=== PATIENT | female | born 1985 | race American Indian/Alaskan Native ===

== ENCOUNTER 2020-04-24 13:05 | Emergency (ER) | payer OTHER ==
--- NOTE | 2020-04-24 14:58 | Vascular Lab Report ---
Left lower extremity Doppler venous ultrasound INDICATION: Pain FINDINGS: The left common femoral vein, superficial femoral vein and popliteal vein have normal compr essibility and phasic flow. IMPRESSION: No evidence for DVT in the left lower extremity. Signer Name: Pa Lizama MD Signed: 04/24/2020 2:53 PM Workstation Name: [id number]
--- NOTE | 2020-04-24 15:51 | Emergency Department Report ---
ED Lower Extremity HPI - General Chief Complaint: Extremity Injury, Lower Stated Complaint: LT KNEE/ANKLE PAIN(MRI) Time Seen by Provider: 04/24/20 13:36 Source: patient Mode of arrival: Ambulatory Limitations: No Limitations - History of Present Illness Initial Comments: This is a 34-year-old female nontoxic, well nourished in appearance, no acute signs of distress presents to the ED with c/o of left leg pain 1 week. Patient stated that she had a ground-level trip and fall last week. Patient was seen by her primary care doctor and has a pending MRI of her left knee. Patient has her x-ray report currently with her of her left knee which is unremarkable with no fractures or dislocation. Patient denies any injuries or trauma. Patient denies any numbness, tingling, fever, chills, nausea, vomiting, chest pain, shortness of breath, headache, stiff neck. Patient denies any joint swelling or joint redness. Patient denies decreased range of motion. Patient stated has decreased gait due to pain. Patient denies any allergies. Past medical history includes DVT. MD Complaint: knee injury, leg injury -: week(s) Injury: Knee: Left Place: street/outdoors Severity: mild Severity scale (0 -10): 8 Improves With: immobilization Worsens With: weight bearing, movement, palpation Context: fall Associated Symptoms: swelling, able to partially bear weight. denies: snap/pop sensation, numbness, tingling, unable to bear weight - Related Data Previous Rx's Medication Instructions Recorded Last Taken Type Prednisone [predniSONE 10 mg 10 mg PO .TAPER #1 tab.ds.pk 09/25/19 Unknown Rx (6-Day Pack, 21 Tabs)] Allergies Allergy/AdvReac Type Severity Reaction Status Date / Time No Known Allergies Allergy Unverified 09/25/19 11:31 ED Review of Systems ROS: Stated complaint: LT KNEE/ANKLE PAIN(MRI) Other details as noted in HPI Comment: All other systems reviewed and negative Constitutional: denies: chills, fever Eyes: denies: eye pain, eye discharge, vision change ENT: denies: ear pain, throat pain Respiratory: denies: cough, shortness of breath, wheezing Cardiovascular: denies: chest pain, palpitations Endocrine: no symptoms reported Gastrointestinal: denies: abdominal pain, nausea, diarrhea Genitourinary: denies: urgency, dysuria, discharge Musculoskeletal: denies: back pain, joint swelling, arthralgia Skin: denies: rash, lesions Neurological: denies: headache, weakness, paresthesias Psychiatric: denies: anxiety, depression Hematological/Lymphatic: denies: easy bleeding, easy bruising ED Past Medical Hx - Past Medical History Previous Medical History?: Yes Hx Hypertension: Yes Additional medical history: BLOOD DISORDER, FACTOR C / CARPEL TUNNEL,PE,DVT - Surgical History Past Surgical History?: No - Social History Smoking Status: Never Smoker Substance Use Type: None - Medications Home Medications: Home Medications Medication Instructions Recorded Confirmed Last Taken Type Prednisone [predniSONE 10 mg 10 mg PO .TAPER #1 tab.ds.pk 09/25/19 Unknown Rx (6-Day Pack, 21 Tabs)] ED Physical Exam - General Limitations: No Limitations General appearance: alert, in no apparent distress - Head Head exam: Present: atraumatic, normocephalic - Eye Eye exam: Present: normal appearance - Neck Neck exam: Present: normal inspection, full ROM. Absent: tenderness, meningismus, lymphadenopathy - Respiratory Respiratory exam: Absent: respiratory distress - Cardiovascular Cardiovascular Exam: Present: regular rate - Extremities Exam Extremities exam: Present: full ROM, tenderness, normal capillary refill, calf tenderness. Absent: joint swelling - Expanded Lower Extremity Exam Left Hip exam: Present: normal inspection, full ROM. Absent: tenderness, swelling Upper Leg exam: Present: normal inspection, full ROM. Absent: tenderness, swelling Knee exam: Present: full ROM, tenderness, swelling, full knee extension. Absent: abrasion, laceration, ecchymosis, deformity, crepidus, dislocation, erythema, effusion, pain w/ pronation/supination, posterior draw sign, pain/laxity with valgus, pain/laxity with varus Lower Leg exam: Present: full ROM, tenderness. Absent: swelling, abrasion, laceration, ecchymosis, deformity, crepidus, dislocation, erythema, palpable cord, Brandon's sign Ankle exam: Present: normal inspection, full ROM. Absent: tenderness, swelling, abrasion, laceration, ecchymosis, deformity, crepidus, dislocation, erythema, anterior draw sign Foot/Toe exam: Present: normal inspection, full ROM. Absent: tenderness, swelling Neuro vascular tendon exam: Present: no vascular compromise Gait: Positive: observed and limited by pain 1 - pain here - Back Exam Back exam: Present: normal inspection, full ROM. Absent: tenderness, CVA tenderness (R), CVA tenderness (L), muscle spasm, paraspinal tenderness, vertebral tenderness, rash noted - Neurological Exam Neurological exam: Present: alert, oriented X3 - Psychiatric Psychiatric exam: Present: normal affect, normal mood - Skin Skin exam: Present: warm, dry, intact, normal color. Absent: rash - Other Other exam information: Negative Owen test of left leg. ED Course Vital Signs 04/24/20 16:02 Temperature 98.3 F Pulse Rate 86 Respiratory 18 Rate Blood Pressure 132/82 [Left] O2 Sat by Pulse 99 Oximetry - Reevaluation(s) Reevaluation #1: 04/24/20 15:51 Patient is speaking in full sentences with no signs of distress noted. ED Lower Extremity MDM - Radiology Data [facility] [address] [place] [address] Vascular Lab Report Signed Patient: LUCINDA ROSENBERG MR#: [id number] : 1985 Acct:[id number] Age/Sex: 34 / F ADM Date: 04/24/20 Loc: ED Attending Dr: Ordering Physician: ALE SIMON NP Date of Service: 04/24/20 Procedure(s): VL venous duplex LE Accession Number(s): [id number] cc: ALE SIMON NP Left lower extremity Doppler venous ultrasound INDICATION: Pain FINDINGS: The left common femoral vein, superficial femoral vein and popliteal vein have normal compressibility and phasic flow. IMPRESSION: No evidence for DVT in the left lo wer extremity. Signer Name: Pa Lizama MD Signed: 04/24/2020 2:53 PM Workstation Name: [id number] Transcribed By: CW Dictated By: KYREE LIZAMA MD Electronically Authenticated By: KYREE LIZAMA MD Signed Date/Time: 04/24/20 145 DD/ 1452 TD/TT: - Medical Decision Making This is a 34-year-old female that presents with left leg strain. Patient is stable and was examined by me. I referred patient to an orthopedic doctor for further evaluation for possible MRI. Doppler ultrasound has been obtained and dictated by the radiologist. Patient is notified of the report with noted by the patient. Patient was instructed to RICE therapy. Patient follows up with primary care doctor for this condition. At time of discharge, the patient does not seem toxic or ill in appearance. No acute signs of distress noted. Patient agrees to discharge treatment plan of care. No further questions noted by the patient. Critical care attestation.: If time is entered above; I have spent that time in minutes in the direct care of this critically ill patient, excluding procedure time. ED Disposition Clinical Impression: Strain of left knee and leg Qualifiers: Encounter type: initial encounter Qualified Code(s): S86.912A - Strain of unspecified muscle(s) and tendon(s) at lower leg level, left leg, initial encounter Disposition: TO HOME OR SELFCARE Is pt being admited?: No Does the pt Need Aspirin: No Condition: Stable Instructions: RICE Therapy for Routine Care of Injuries, [id number] Additional Instructions: Follow-up with a orthopedic doctor in 3-5 days or if symptoms worsen and continue return to emergency room as soon as possible. No significant weight bearing or strenuous physical activity to that extremity until cleared by orthopedic doctor. Referrals: JASEN MAHAJAN MD [Primary Care Provider] - 3-5 Days PRIMARY CARE, [Referring] - 3-5 Days NAEEM PABLO MD [Staff Physician] - 3-5 Days Forms: Work/School Release Form(ED) Time of Disposition: 15:57
[2020-04-24 16:03] VITALS: BP 132/82
== END 2020-04-24 16:18 | disposition home or self-care (01) ==
LOC: ED 13:05
DX: S86.912A Strain of unspecified muscle(s) and tendon(s) at lower leg level, left leg, initial encounter (principal); I10 Essential (primary) hypertension; Z79.899 Other long term (current) drug therapy; W01.0XXA Fall on same level from slipping, tripping and stumbling without subsequent striking against object, initial encounter; Y93.89 Activity, other specified; Y92.89 Other specified places as the place of occurrence of the external cause; Y99.8 Other external cause status

== ENCOUNTER 2021-07-22 22:38 | Emergency (ER) | payer OTHER ==
--- NOTE | 2021-07-22 23:54 | Emergency Department Report ---
HPI - General Chief Complaint: Headache Time Seen by Provider: 07/22/21 23:36 - HPI HPI: Room 24 The patient is a 35-year-old female present with chief complaint of headache after fall. The patient presents with her spouse who states the patient had 1 beer this evening and when she went to the bathroom she passed out striking her head. Patient admits to loss of consciousness but denies preceding shortness of breath, chest pain or palpitations. Patient states her legs felt weak prior to losing consciousness. Patient now complains of feeling sleepy, having a headache and low back pain. Patient states her headache is the worst pain and gives it a score of 10/10. Patient denies nausea vomiting. Patient has a history of factor V Leiden and is currently on Xarelto ED Past Medical Hx - Past Medical History Previous Medical History?: Yes Hx Hypertension: Yes Additional medical history: BLOOD DISORDER, FACTOR C Leiden/ CARPEL TUNNEL,PE,DVT - Surgical History Past Surgical History?: Yes Hx Cholecystectomy: Yes Additional Surgical History: X 2 , Right knee - Social History Smoking Status: Current Every Day Smoker (7 cigarettes daily) Substance Use Type: Alcohol (Frequently), Marijuana - Medications Home Medications: Home Medications Medication Instructions Recorded Confirmed Last Taken Type Prednisone [predniSONE 10 mg 10 mg PO .TAPER #1 tab.ds.pk 09/25/19 Unknown Rx (6-Day Pack, 21 Tabs)] ED Review of Systems ROS: Stated complaint: FAINTED/HIT HEAD Other details as noted in HPI Constitutional: no symptoms reported Eyes: denies: eye pain ENT: denies: throat pain Respiratory: denies: shortness of breath Cardiovascular: denies: chest pain, palpitations Endocrine: no symptoms reported Gastrointestinal: denies: nausea, vomiting Genitourinary: denies: dysuria Musculoskeletal: back pain Neurological: headache Physical Exam - Physical Exam Vital Signs: Vital Signs 07/22/21 07/22/21 23:06 23:47 Temperature 98.2 F Pulse Rate 74 Respiratory 20 Rate Blood Pressure 130/70 O2 Sat by Pulse 98 96 Oximetry Physical Exam: GENERAL: The patient is well-developed well-nourished female lying on stretcher not appearing to be in acute distress. [] HEENT: Normocephalic. Atraumatic. Extraocular motions are intact. Patient has moist mucous membranes. NECK: Supple. Axial tenderness palpation. No axial step-off CHEST/LUNGS: Clear to auscultation. There is no respiratory distress noted. HEART/CARDIOVASCULAR: Regular. There is no tachycardia. There is no gallop rub or murmur. ABDOMEN: Abdomen is soft, nontender. Patient has normal bowel sounds. There is no abdominal distention. SKIN: There is no rash. There is no edema. There is no diaphoresis. NEURO: The patient is awake, alert, and oriented. The patient is cooperative. The patient has no focal neurologic deficits. The patient has normal speech. GCS 15 MUSCULOSKELETAL: There is tenderness palpation of the lumbar spine. There is no evidence of acute injury. ED Course Vital Signs 07/22/21 07/22/21 23:06 23:47 Temperature 98.2 F Pulse Rate 74 Respiratory 20 Rate Blood Pressure 130/70 O2 Sat by Pulse 98 96 Oximetry - Reevaluation(s) Reevaluation #1: 07/23/21 03:58 Patient and spouse states that they are unhappy with their interactions with staff and do not wish to have for further evaluation. They wish to leave AMA. We will give patient copy of labs and studies ED Medical Decision Making - Lab Data Result diagrams: 07/22/21 23:57 07/22/21 23:57 Laboratory Tests 07/22/21 07/22/21 07/22/21 23:57 23:57 23:57 WBC 7.3 RBC 4.06 Hgb 10.9 Hct 32.6 MCV 80 MCH 27 L MCHC 33 RDW 16.0 H Plt Count 429 Lymph % (Auto) 37.3 H Mclennan % (Auto) 7.9 H Eos % (Auto) 0.9 Baso % (Auto) 1.2 Lymph # (Auto) 2.7 Mclennan # (Auto) 0.6 Eos # (Auto) 0.1 Baso # (Auto) 0.1 Seg Neutrophils % 52.7 Seg Neutrophils # 3.9 PT INR D-Dimer Sodium 137 Potassium 3.7 Chloride 99.4 Carbon Dioxide 25 Anion Gap 16 BUN 7 Creatinine 1.0 Estimated GFR > 60 BUN/Creatinine Ratio 7 Glucose 95 Calcium 9.4 Total Bilirubin < 0.20 AST 14 ALT 11 Alkaline Phosphatase 99 Total Creatine Kinase 140 H CK-MB (CK-2) < 1.0 CK-MB (CK-2) Rel Index 0.7 Troponin T < 0.010 Total Protein 7.8 Albumin 4.2 Albumin/Globulin Ratio 1.2 HCG, Qual Plasma/Serum Alcohol 0.01 07/22/21 07/22/21 07/23/21 23:57 23:57 02:40 WBC RBC Hgb Hct MCV MCH MCHC RDW Plt Count Lymph % (Auto) Mclennan % (Auto) Eos % (Auto) Baso % (Auto) Lymph # (Auto) Mclennan # (Auto) Eos # (Auto) Baso # (Auto) Seg Neutrophils % Seg Neutrophils # PT 21.5 H INR 1.64 H D-Dimer 135.00 Sodium Potassium Chloride Carbon Dioxide Anion Gap BUN Creatinine Estimated GFR BUN/Creatinine Ratio Glucose Calcium Total Bilirubin AST ALT Alkaline Phosphatase Total Creatine Kinase CK-MB (CK-2) CK-MB (CK-2) Rel Index Troponin T Total Protein Albumin Albumin/Globulin Ratio HCG, Qual Negative Plasma/Serum Alcohol - Radiology Data Radiology results: report reviewed (CT head, CT cervical spine), image reviewed (CT head, CT cervical spine) interpreted by me: Lumbar spine x-ray-no acute fracture Bilateral shoulder x-ray-no acute fracture, no dislocation [facility] [address] [place] [address] Cat Scan Report Signed Patient: LUCINDA ROSENBERG MR#: [id number] : 1985 Acct:[id number] Age/Sex: 35 / F ADM Date: 07/22/21 Loc: ED Attending Dr: Ordering Physician: LAMONT COX MD Date of Service: 07/22/21 Procedure(s): CT head/brain wo con Accession Number(s): [id number] cc: LAMONT COX MD CT HEAD WITHOUT CONTRAST INDICATION / CLINICAL INFORMATION: Head injury after syncopal episode. TECHNIQUE: CT head was performed without administration of intravenous contrast. All CT scans at this location are performed using CT dose reduction for ALARA by means of automated exposure control. COMPARISON: None available. FINDINGS: CEREBRAL HEMISPHERES: There is no evidence of large territorial infarction or significant abnormality of alatorre-white matter differentiation. Ventricles within normal limits. No midline shift. Basal cisterns patent. HEMORRHAGE: None. CEREBELLUM / BRAINSTEM: No significant a bnormality. ORBITS: No significant abnormality. SOFT TISSUES: No significant abnormality. SKULL: No significant abnormality. PARANASAL SINUSES / MASTOID AIR CELLS: Normal as visualized. ADDITIONAL FINDINGS: None. IMPRESSION: 1. No acute intracranial abnormality. Signer Name: Abdifatah Solo II, MD Signed: 07/23/2021 1:44 AM Workstation Name: [id number] Transcribed By: RACHELL Dictated By: ABDIFATAH SOLO II, MD Electronically Authenticated By: ABDIFATAH SOLO II, MD Signed Date/Time: 07/23/21143 DD/ 2 TD/TT: [facility] [address] [place] [id number] Cat Scan Report Signed Patient: LUCINDA ROSENBERG MR#: [id number] : 1985 Acct:[id number] Age/Sex: 35 / F ADM Date: 07/22/21 Loc: ED Attendin g Dr: Ordering Physician: LAMONT COX MD Date of Service: 07/22/21 Procedure(s): CT cervical spine wo con Accession Number(s): [id number] cc: LAMONT COX MD CT CERVICAL SPINE WITHOUT CONTRAST INDICATION / CLINICAL INFORMATION: Head injury after syncopal episode. TECHNIQUE: Axial CT images were obtained through the cervical spine. Sagittal and coronal reformatted images were produced. All CT scans at this location are performed using CT dose reduction for ALARA by means of automated exposure control. COMPARISON: None available. FINDINGS: MANDIBLE: No significant abnormality of the visualized mandible or TMJs. SKULL BASE: No significant abnormality of the skull base. CRANIOCERVICAL JUNCTION: No significant abnormality of the craniocervical junction. CERVICAL SPINE: Cervical spine demonstrates normal alignment without evidence of acute fracture. No severe central stenosis. SOFT TISSUES: No significant abnormality of soft tissues or musculature. THYROID: No significant abnormality. UPPER CH EST: No significant abnormality of the visualized chest. ADDITIONAL FINDINGS: None. IMPRESSION: 1. No evidence of acute osseous injury. Signer Name: Abdifatah Solo II, MD Signed: 07/23/2021 1:45 AM Workstation Name: [id number] Transcribed By: RACHELL Dictated By: ABDIFATAH SOLO II, MD Electronically Authenticated By: ABDIFATAH SOLO II, MD Signed Date/Time: 07/23/21144 DD/ 3 TD/TT: [address] [address] XRay Report Signed Patient: LUCINDA ROSENBERG MR#: [id number] : 1985 Acct:[id number] Age/Sex: 35 / F ADM Date: 07/22/21 Loc: ED Attending Dr: Ordering Physician: LAMONT COX MD Date of Service: 07/22/21 Procedure(s): XR spine lumbosacral 2-3V Accession Number(s): [id number] cc: LAMONT COX MD Fluoro Time In Minutes: LUMBAR SPINE 2 VIEWS INDICATION / CLINICAL INFORMATION: Pain after fall. COMPARISON: None available. FINDINGS: VERTEBRAE: No acute fracture. No significant malalignment. DISC SPACES / FACET JOINTS:No significant abnormality. PARASPINAL SOFT TISSUES:No significant abnormality. ADDITIONAL FINDINGS: None. IMPRESSION: 1. No significant degenerative changes, no acute findings. Signer Name: Abdifatah Solo II, MD Signed: 07/23/2021 2:33 AM Workstation Name: [id number] Transcribed By: RACHELL Dictated By: ABDIFATAH SOLO II, MD Electronically Authenticated By: ABDIFATAH SOLO II, MD Signed Date/Time: 07/23/21232 DD/ 2 TD/TT: [address] [address] XRay Report Signed Patient: LUCINDA ROSENBERG MR#: [id number] : 1985 Acct:[id number] Age/Sex: 35 / F ADM Date: 07/22/21 Loc: ED Attending Dr: Ordering Physician: LAMONT COX MD Date of Service: 07/22/21 Procedure(s): XR shoulder BILAT 2+V Accession Number(s): [id number] cc: LAMONT COX MD Fluoro Time In Minutes: BILATERAL SHOULDER 3 VIEW(S) INDICATION / CLINICAL INFORMATION: Pain after fall COMPARISON: None available. FINDINGS: RIGHT SHOULDER: No significant abnormality demonstrated. No acute findings. The right chest wall is unremarkable. LEFT shoulder: No fracture dislocation or significant soft tissue abnormality. Visualized left chest unremarkable. IMPRESSION: 1. No acute pathology involving either shoulder. Signer Name: Abdifatah Solo II, MD Signed: 07/23/2021 2:33 AM Workstation Name: [id number] Transcribed By: RACHELL Dictated By: ABDIFATAH SOLO II, MD Electronically Authenticated By: ABIDFATAH SOLO II, MD Signed Date/Time: 07/23/21232 DD/ 1 TD/TT: - Differential Diagnosis Alcohol intoxication, closed head injury, ICH, shoulder contusion, lumbar s Critical care attestation.: If time is entered above; I have spent that time in minutes in the direct care of this critically ill patient, excluding procedure time. ED Disposition Clinical Impression: Syncope, Contusion of right shoulder, Contusion of left shoulder, Lumbar stra in, Closed head injury, Cervical strain Disposition: 07 LEFT AGAINST MEDICAL ADVICE Is pt being admited?: No Does the pt Need Aspirin: No Condition: Undetermined Instructions: Syncope (ED) Time of Disposition: 04:00 (Patient leaving AMA before EKG or orthostatics)
[2021-07-23 00:33] LABS: Basophils # (Auto) 0.1 K/mm3 (0.0-0.1); Basophils % (Auto) 1.2 % (0.0-1.8); Eosinophils # (Auto) 0.1 K/mm3 (0.0-0.4); Eosinophils % (Auto) 0.9 % (0.0-4.3); Hematocrit 32.6 % (30.3-42.9); Hemoglobin 10.9 gm/dl (10.1-14.3); Lymphocytes # (Auto) 2.7 K/mm3 (1.2-5.4); Lymphocytes % (Auto) 37.3 % (13.4-35.0); Mean Corpuscular HGB Conc 33 % (30-34); Mean Corpuscular Volume 80 fl (79-97); Monocytes # (Auto) 0.6 K/mm3 (0.0-0.8); Monocytes % (Auto) 7.9 % (0.0-7.3); Platelet Count 429 K/mm3 (140-440); Red Blood Count 4.06 M/mm3 (3.65-5.03)
[2021-07-23 00:45] LABS: INR 1.64 (0.87-1.13)
[2021-07-23 00:55] LABS: Alanine Aminotransferase 11 units/L (7-56); Albumin 4.2 g/dL (3.9-5); BUN/Creatinine Ratio 7; Blood Urea Nitrogen 7 mg/dL (7-17); Calcium 9.4 mg/dL (8.4-10.2); Hemolysis Index 3
[2021-07-23 00:56] LABS: Creatine Kinase MB < 1.0 ng/mL (0.0-4.0)
--- NOTE | 2021-07-23 01:48 | Cat Scan Report ---
CT HEAD WITHOUT CONTRAST INDICATION / CLINICAL INFORMATION: Head injury after syncopal episode. TECHNIQUE: CT head was performed without administration of intravenous contrast. All CT scans at this location are performed using CT dose reduction for ALARA by means of automated exposure control. COMPARISON: None available. FINDINGS: CEREBRAL HEMISPHERES: There is no evidence of large territorial infarction or significant abnormality of alatorre-white matter differentiation. Ventricles within normal limits. No midline shift. Basal ciste rns patent. HEMORRHAGE: None. CEREBELLUM / BRAINSTEM: No significant abnormality. ORBITS: No significant abnormality. SOFT TISSUES: No significant abnormality. SKULL: No significant abnormality. PARANASAL SINUSES / MASTOID AIR CELLS: Normal as visualized. ADDITIONAL FINDINGS: None. IMPRESSION: 1. No acute intracranial abnormality. Signer Name: Ag Moya II, MD Signed: 07/23/2021 1:44 AM Workstation Name: [id number]
--- NOTE | 2021-07-23 01:49 | Cat Scan Report ---
CT CERVICAL SPINE WITHOUT CONTRAST INDICATION / CLINICAL INFORMATION: Head injury after syncopal episode. TECHNIQUE: Axial CT images were obtained through the cervical spine. Sagittal and coronal reformatted images were produced. All CT scans at this location are performed using CT dose reduction for ALARA by means of automated exposure control. COMPARISON: None available. FINDINGS: MANDIBLE: No significant abnormality of the visualized mandible or TMJs. SKULL BASE: No significant abnormality of the skull base. CRANIOCERVICAL JUNCTION: No significant abnormality of the craniocervical junction. CERVICAL SPINE: Cervical spine demonstrates normal alignment without evidence of acute fracture. No s evere central stenosis. SOFT TISSUES: No significant abnormality of soft tissues or musculature. THYROID: No significant abnormality. UPPER CHEST: No significant abnormality of the visualized chest. ADDITIONAL FINDINGS: None. IMPRESSION: 1. No evidence of acute osseous injury. Signer Name: Ag Moya II, MD Signed: 07/23/2021 1:45 AM Workstation Name: [id number]
--- NOTE | 2021-07-23 02:37 | XRay Report ---
BILATERAL SHOULDER 3 VIEW(S) INDICATION / CLINICAL INFORMATION: Pain after fall COMPARISON: None available. FINDINGS: RIGHT SHOULDER: No significant abnormality demonstrated. No acute findings. The right chest wall is unremarkable. LEFT shoulder: No fracture dislocation or significant soft tissue abnormality. Visualized left chest unremarkable. IMPRESSION: 1. No acute pathology involving either shoulder. Signer Name: Ag Moya II, MD Signed: 07/23/2021 2:33 AM Workstation Name: [id number]
--- NOTE | 2021-07-23 02:38 | XRay Report ---
LUMBAR SPINE 2 VIEWS INDICATION / CLINICAL INFORMATION: Pain after fall. COMPARISON: None available. FINDINGS: VERTEBRAE: No acute fracture. No significant malalignment. DISC SPACES / FACET JOINTS:No significant abnormality. PARASPINAL SOFT TISSUES:No significant abnormality. ADDITIONAL FINDINGS: None. IMPRESSION: 1. No significant degenerative changes, no acute findings. Signer Name: Ag Moya II, MD Signed: 07/23/2021 2:33 AM Workstation Name: [id number]
[2021-07-23 04:28] VITALS: BP 148/86
== END 2021-07-23 05:08 | disposition left against medical advice (07) ==
LOC: ED 22:38
DX: S39.012A Strain of muscle, fascia and tendon of lower back, initial encounter (principal); S13.4XXA Sprain of ligaments of cervical spine, initial encounter; S09.90XA Unspecified injury of head, initial encounter; S40.011A Contusion of right shoulder, initial encounter; S40.012A Contusion of left shoulder, initial encounter; I10 Essential (primary) hypertension; F17.200 Nicotine dependence, unspecified, uncomplicated; F12.90 Cannabis use, unspecified, uncomplicated; F10.20 Alcohol dependence, uncomplicated; R55 Syncope and collapse; X58.XXXA Exposure to other specified factors, initial encounter; Y93.89 Activity, other specified; Y92.89 Other specified places as the place of occurrence of the external cause; Y99.8 Other external cause status
CPT/HCPCS: 36415; 70450; 72100; 72125; 80053; 80320; 82550; 82553; 84484; 84703; 85025; 85379; 85610; 99284; G0480